=== PATIENT | male | born 1975 | race Caucasian/White ===

== ENCOUNTER 2018-03-14 15:06 | Emergency (ER) | payer MEDICAID, SELFPAY ==
[~2018-03-14] VITALS: Ht 177.8 cm; Wt 91.8 kg
[2018-03-14 15:13] VITALS: BP 118/78
== END 2018-03-14 16:40 | disposition home or self-care (01) ==
LOC: ED 16:18
DX: T18.2XXA Foreign body in stomach, initial encounter (principal); R10.84 Generalized abdominal pain; X58.XXXA Exposure to other specified factors, initial encounter; Y93.89 Activity, other specified; Y92.89 Other specified places as the place of occurrence of the external cause; Y99.8 Other external cause status
CPT/HCPCS: 71045; 74018; 99284

== ENCOUNTER 2020-11-19 17:19 | Emergency (ER) | payer MEDICAID ==
[~2020-11-19] VITALS: Ht 177.8 cm; Wt 104.3 kg
--- NOTE | 2020-11-19 17:37 | NUR ---
PT PRESENTS TO ED WITH BILATERAL FOOT PAIN "ALL OVER" AND PT REPORTS UNABLE TO FEEL HIS TOES. PT DENIES TRAUMA. PT'S LOWER LEGS AND FEET ARE VERY SUNBURNED. "I APPLIED SUNSCREEN TO MY LEGS AND FEET ABOUT 60 TIMES THIS WEEKEND." PT DENIES DM/NEUROPATHY. PT RECLINED IN BED. NAD NOTED AT THIS TIME. NO WOB NOTED. SIDE RAIL UP, CALL LIGHT IN REACH.
[2020-11-19] MEDS ORDERED: OXYcodone/APAP 5/325MG TABLET PO ONE (18:30)
[2020-11-19] MEDS ORDERED: OXYcodone/APAP 5/325MG TABLET ONE (18:43)
[2020-11-19 18:57] VITALS: BP 109/72
== END 2020-11-19 18:58 | disposition home or self-care (01) ==
LOC: ED 18:16
DX: T25.191A Burn of first degree of multiple sites of right ankle and foot, initial encounter (principal); T25.192A Burn of first degree of multiple sites of left ankle and foot, initial encounter; F17.210 Nicotine dependence, cigarettes, uncomplicated; T31.0 Burns involving less than 10% of body surface; X08.8XXA Exposure to other specified smoke, fire and flames, initial encounter; Y93.89 Activity, other specified; Y92.89 Other specified places as the place of occurrence of the external cause; Y99.8 Other external cause status
CPT/HCPCS: 99406